=== PATIENT | female | born 1985 | race Two or more races ===

== ENCOUNTER 2021-05-22 12:26 | Emergency (ER) | payer BC ==
[~2021-05-22] VITALS: Ht 162.6 cm; Wt 68.0 kg
[2021-05-22 12:30] VITALS: BP_SYST 124
--- NOTE | 2021-05-22 12:35 | NUR ---
Patient to ER bed 8 to gown for evaluation. Side rails up.
--- NOTE | 2021-05-22 12:40 | NUR ---
Patient arrived at er with complaint of back pain to the right side of thoraxic region, patient drove herself. no sign of bruising or trauma. Patient has an O2 sat of 97 room air with resp of 17, patient has clear lung sound in 8 posterior locations and 6 anterior. Patient started experiencing pain yesterday when she woke up while at home, denies any type of mechanical trauma/injury. Patient has no issues walking. provided patient with urine sample cup. patient shows no sighns of distress. patient does have pain 4/10 took 2 500mg tylenol pain prior to tylenol was an 8/10
--- NOTE | 2021-05-22 12:57 | NUR ---
at patient bed side
[2021-05-22] MEDS ORDERED: IBUPROFEN 600 MG TABLET PO ONE (13:15)
[2021-05-22] MEDS ORDERED: NAPR-1082 PO (13:59)
[2021-05-22 14:30] VITALS: BP_SYST 115
--- NOTE | 2021-05-22 14:30 | NUR ---
Patient given written and verbal discharge instructions and verbalizes understanding. ER discussed with patient the results and treatment provided. Patient in stable condition. Rx of Naproxen given. Patient educated on pain management and to follow up with PMD. Pain Scale 0. Opportunity for questions provided and answered. Medication side effect fact sheet provided.
== END 2021-05-22 14:30 | disposition home or self-care (01) ==
LOC: SED 12:26
DX: S29.012A Strain of muscle and tendon of back wall of thorax, initial encounter (principal); Z88.8 Allergy status to other drugs, medicaments and biological substances; Z79.899 Other long term (current) drug therapy; X50.9XXA Other and unspecified overexertion or strenuous movements or postures, initial encounter; Y93.89 Activity, other specified; Y92.89 Other specified places as the place of occurrence of the external cause; Y99.8 Other external cause status
CPT/HCPCS: 71045; 81025; 99283

== ENCOUNTER 2022-07-23 18:12 | Emergency (ER) | payer BC ==
[~2022-07-23] VITALS: Ht 162.6 cm; Wt 68.0 kg
[~2022-07-23 18:12] MED LIST: NAPR-1082 PO
[2022-07-23 18:20] VITALS: BP_SYST 126
[2022-07-23 18:42] LABS: BASOPHILS % (AUTO) 0.6 % (0.0-2.0); EOSINOPHILS # (AUTO) 0.2 K/uL (0.0-0.4); EOSINOPHILS % (AUTO) 2.7 % (0.0-4.0); HEMATOCRIT 39.5 % (36-48); HEMOGLOBIN 13.3 g/dL (12.0-16.0); LYMPHOCYTES % (AUTO) 34.6 % (20.5-51.5); MEAN CORPUSCULAR HEMOGLOBIN 30 pg (27-31); MEAN CORPUSCULAR HGB CONC 34 % (32-36); MEAN CORPUSCULAR VOLUME 90 fL (79.0-98.0); MONOCYTES # (AUTO) 0.3 K/uL (0.0-1.0); MONOCYTES % (AUTO) 5.3 % (1.7-9.3); NEUTROPHILS # (AUTO) 3.2 K/uL (1.8-7.7); NEUTROPHILS % (AUTO) 56.8 % (40.0-70.0); PLATELET COUNT (AUTO) 329 K/uL (130-430); RED CELL DISTRIBUTION WIDTH 14.2 % (9.0-15.0); WHITE BLOOD COUNT (AUTO) 5.7 K/uL (4.8-10.8)
[2022-07-23 18:45] LABS: BILIRUBIN,URINE NEGATIVE (NEGATIVE); BLOOD, URINE 3+ (NEGATIVE); CLARITY/URINE SL CLOUDY (CLEAR); COLOR,URINE YELLOW (YELLOW); GLUCOSE,URINE NEGATIVE (NEGATIVE); KETONES,URINE NEGATIVE (NEGATIVE); LEUKOCYTE ESTERASE ,URINE 1+ (NEGATIVE); NITRITE, URINE NEGATIVE (NEGATIVE); PROTEIN URINE NEGATIVE (NEGATIVE); UROBILINOGEN,URINE 0.2 (0.2-1.0)
[2022-07-23] MEDS ORDERED: IBUPROFEN 800 MG TABLET PO ONE (18:45)
[2022-07-23 18:56] LABS: BACTERIA,URINE FEW /HPF (None Seen); HCG,QUAL RESULT NEGATIVE (NEGATIVE)
[2022-07-23 19:03] LABS: CALCIUM 8.7 mg/dL (8.4-11.0); CREATININE 0.88 mg/dL (0.55-1.30)
[2022-07-23 19:07] LABS: ALBUMIN 3.8 g/dL (3.4-4.8); TOTAL BILIRUBIN 0.3 mg/dL (0.0-1.0)
[2022-07-23] MEDS ORDERED: SULF1TAB48 PO (20:33)
[2022-07-23] MEDS ORDERED: IBUP-1971 PO (20:33)
[2022-07-23 21:26] VITALS: BP_SYST 126
== END 2022-07-23 21:26 | disposition home or self-care (01) ==
LOC: SED 18:12
DX: N39.0 Urinary tract infection, site not specified (principal); R10.30 Lower abdominal pain, unspecified; Z88.1 Allergy status to other antibiotic agents; Z79.899 Other long term (current) drug therapy
CPT/HCPCS: 36415; 76830-TC; 76857; 80053; 81000; 81025; 84703; 85025; 87086; 99284

== ENCOUNTER 2023-07-04 12:55 | Emergency (ER) | payer BC ==
[~2023-07-04] VITALS: Ht 160 cm; Wt 59.9 kg
[~2023-07-04 12:55] MED LIST changes: +IBUP-1971 PO; +SULF1TAB48 PO
[2023-07-04 13:02] VITALS: BP_SYST 120; PULSE 90; RESP 18; TEMP 98.3; O2SAT 96
[2023-07-04] MEDS: IPRATROPIUM/ALBUTEROL SULFATE 3 ML AMPUL.NEB (DUONEB) INH ONE (13:23)
[2023-07-04] MEDS ORDERED: METH-776 PO (14:12)
[2023-07-04] MEDS ORDERED: AZIT500T PO (14:12)
[2023-07-04] MEDS ORDERED: ALBMDI INH (14:12)
[2023-07-04 14:17] VITALS: BP_SYST 120; PULSE 90; RESP 18; TEMP 98.3; O2SAT 96
== END 2023-07-04 14:18 | disposition home or self-care (01) ==
LOC: SED 12:55
DX: J45.909 Unspecified asthma, uncomplicated (principal); R05.9 Cough, unspecified; R06.02 Shortness of breath; R09.89 Other specified symptoms and signs involving the circulatory and respiratory systems; Z88.1 Allergy status to other antibiotic agents; Z79.899 Other long term (current) drug therapy
CPT/HCPCS: 81025; 94640; 99283